=== PATIENT | male | born 1985 ===

== ENCOUNTER 2021-02-11 14:48 | Emergency (ER) | payer OTHER ==
[~2021-02-11] VITALS: Ht 188 cm; Wt 73.1 kg
[2021-02-11 14:55] VITALS: BP 137/78
--- NOTE | 2021-02-11 15:25 | NUR ---
PT LEFT PROPERTY WITH STEADY GAIT.
== END 2021-02-11 18:39 | disposition left against medical advice (07) ==
LOC: ED 15:00
DX: R07.89 Other chest pain (principal); M54.9 Dorsalgia, unspecified; R05 Cough; Y08.89XA Assault by other specified means, initial encounter; Y93.89 Activity, other specified; Y92.89 Other specified places as the place of occurrence of the external cause; Y99.8 Other external cause status
CPT/HCPCS: 99281